=== PATIENT | female | born 1980 ===

== ENCOUNTER 2017-10-06 17:51 | Inpatient (IN) | payer OTHER ==
[~2017-10-06] VITALS: Ht 162.6 cm; Wt 1.8 kg
[2017-10-07] MEDS ORDERED: PRENATAL TABLE1 EAC2 PO (11:27)
[2017-10-10] MEDS ORDERED: PREPLUS CA-FE1 EACH PO (10:09)
[2017-10-10] MEDS ORDERED: BISACODYL5 MG PO (10:09)
[2017-10-10] MEDS ORDERED: IBUPROFEN600 MG PO (10:09)
[2017-10-10] MEDS ORDERED: DIPHENHIST25 MG PO (10:09)
[2017-10-10] MEDS ORDERED: Mylicon 125MG PO (10:09)
[2017-10-10] MEDS ORDERED: CEFUROXIME500 MG PO (10:09)
== END 2017-10-14 14:11 | disposition home or self-care (01) | DRG 765 ==
LOC: LDR 17:51 → OB/GYN 17:51
PROVIDERS: Obstetrics & Gynecology; Urology
PROC: 4A1HXCZ Monitoring of Products of Conception, Cardiac Rate, External Approach (ICD-10-PCS; 2017-10-06)
PROC: 4A033R1 Measurement of Arterial Saturation, Peripheral, Percutaneous Approach (ICD-10-PCS; 2017-10-06)
PROC: 10D00Z1 Extraction of Products of Conception, Low, Open Approach (ICD-10-PCS; principal; 2017-10-06 18:00)
PROC: 0TQB0ZZ Repair Bladder, Open Approach (ICD-10-PCS; 2017-10-06 18:00)
DX: O32.1XX0 Maternal care for breech presentation, not applicable or unspecified (principal); O60.14X0 Preterm labor third trimester with preterm delivery third trimester, not applicable or unspecified; N99.72 Accidental puncture and laceration of a genitourinary system organ or structure during other procedure; O26.893 Other specified pregnancy related conditions, third trimester; O42.913 Preterm premature rupture of membranes, unspecified as to length of time between rupture and onset of labor, third trimester; Z3A.33 33 weeks gestation of pregnancy; Z37.0 Single live birth

== ENCOUNTER 2018-10-10 18:21 | Inpatient (IN) | payer OTHER ==
[~2018-10-10] VITALS: Ht 162.6 cm; Wt 86.2 kg
[~2018-10-10 18:21] MED LIST: BISACODYL5 MG PO; CEFUROXIME500 MG PO; DIPHENHIST25 MG PO; IBUPROFEN600 MG PO; Mylicon 125MG PO; PRENATAL TABLE1 EAC2 PO; PREPLUS CA-FE1 EACH PO
[2018-10-16] MEDS ORDERED: DOCUSATE SODIU100 MG PO (09:48)
[2018-10-16] MEDS ORDERED: GAS RELIEF125 MG PO (09:49)
[2018-10-16] MEDS ORDERED: IBUPROFEN600 MG PO (09:50)
== END 2018-10-16 14:02 | disposition home or self-care (01) | DRG 788 ==
LOC: OB/GYN 10-13 07:32 → O/R 10-13 07:32 → OB/GYN 10-13 17:53
PROVIDERS: ADMIT Obstetrics & Gynecology
PROC: 4A1HXCZ Monitoring of Products of Conception, Cardiac Rate, External Approach (ICD-10-PCS; 2018-10-13)
PROC: 10D00Z1 Extraction of Products of Conception, Low, Open Approach (ICD-10-PCS; principal; 2018-10-13 11:15)
DX: O82 Encounter for cesarean delivery without indication (principal); Z3A.39 39 weeks gestation of pregnancy; Z37.0 Single live birth